=== PATIENT | female | born 1980 ===

== ENCOUNTER 2016-12-26 12:09 | Emergency (ER) | payer SELFPAY ==
[2016-12-26 12:25] VITALS: BP 120/81; PULSE 75; RESP 16; TEMP 98; O2SAT 100
[2016-12-26] MEDS ORDERED: Sodium Chloride 0.9% 1,000 ML IV STA (13:03)
--- NOTE | 2016-12-26 13:15 | ED PDOC ---
HPI: Chest Pain Time Seen by Provider: 12/26/16 12:55 Chief Complaint (Nursing): Chest Pain Chief Complaint (Provider): Chest Pain History Per: Patient History/Exam Limitations: no limitations Onset/Duration Of Symptoms: Days Current Symptoms Are (Timing): Still Present Severity: Mild Quality: "Pain" Associated Symptoms: denies: Nausea, Dyspnea, Diaphoresis Modifying Factors: None Exacerbating Factors: None Alleviating Factors: None Additional Complaint(s): Patient is a 36 year old female who presents to ED for evaluation of left sided chest/rib pain for 2 days. Pain is reportedly intermittent, lasting 1-2 minutes with spontaneous resolution. Denies SOB, palpations, nausea, vomiting, injury or headache. No numbness, tingles, weakness, long distance travel, cough. No hormone tx. Past Medical History Reviewed: Historical Data, Nursing Documentation, Vital Signs Vital Signs: Last Vital Signs Temp 98.0 F 12/26/16 12:23 Pulse 75 12/26/16 12:23 Resp 16 12/26/16 12:23 BP 120/81 12/26/16 12:23 Pulse Ox 100 12/26/16 13:27 - Medical History PMH: No Chronic Diseases - Surgical History Surgical History: No Surg Hx - Family History Family History: States: Unknown Family Hx - Social History Current smoker - smoking cessation education provided: No Alcohol: None Drugs: Denies - Home Medications Home Medications: Ambulatory Orders Medication Instructions Recorded Ibuprofen [Motrin] 600 mg PO TID 7 Days 12/26/16 - Allergies Allergies/Adverse Reactions: Allergies Allergy/AdvReac Type Severity Reaction Status Date / Time No Known Allergies Allergy Verified 12/26/16 12:22 Review of Systems ROS Statement: Except As Marked, All Systems Reviewed And Found Negative Constitutional: Negative for: Fever Cardiovascular: Positive for: Chest Pain. Negative for: Palpitations, Light Headedness Respiratory: Negative for: Cough, Shortness of Breath Gastrointestinal: Negative for: Nausea, Vomiting, Abdominal Pain Musculoskeletal: Negative for: Neck Pain, Back Pain Skin: Negative for: Rash, Bruising Neurological: Negative for: Weakness, Numbness Physical Exam - Reviewed Nursing Documentation Reviewed: Yes Vital Signs Reviewed: Yes - Physical Exam Appears: Positive for: Non-toxic, No Acute Distress Skin: Positive for: Normal Color, Warm Eye Exam: Positive for: Normal appearance Neck: Positive for: Normal, Painless ROM Cardiovascular/Chest: Positive for: Regular Rate, Rhythm. Negative for: Chest Non Tender (left lateral rib tenderness upper), Murmur Respiratory: Positive for: Normal Breath Sounds. Negative for: Respiratory Distress Gastrointestinal/Abdominal: Positive for: Normal Exam, Soft. Negative for: Tenderness Back: Positive for: Normal Inspection. Negative for: L CVA Tenderness, R CVA Tenderness Extremity: Positive for: Normal ROM. Negative for: Tenderness, Pedal Edema, Calf Tenderness Neurologic/Psych: Positive for: Alert, Oriented - Laboratory Results Result Diagrams: 12/26/16 14:00 12/26/16 14:00 Interpretation Of Abn Labs: no acute - ECG ECG: Positive for: Interpreted By Me, Viewed By Me ECG Rhythm: Positive for: Normal QRS, Normal ST Segment, Sinus Rhythm O2 Sat by Pulse Oximetry: 100 (RA) Pulse Ox Interpretation: Normal - Radiology X-Ray: Interpreted by Me, Viewed By Me X-Ray Interpretation: No Acute Disease - Progress ED Course And Treament: Pt. stable. AAOx3. Pain free. Medical Decision Making Medical Decision Making: Time: 1255 Initial impression: Rib pain r/o fracture Initial plan: -- EKG -- CMP -- Troponin -- Urine preg -- CBC -- CXR -- NSF and Toradol Scribe Attestation: Documented by Marleen Calhoun acting as a scribe for Kevin Norris MD MD Scribe Attestation: All medical record entries made by the Scribe were at my direction and personally dictated by me. I have reviewed the chart and agree that the record accurately reflects my personal performance of the history, physical exam, medical decision making, and the department course for this patient. I have also personally directed, reviewed, and agree with the discharge instructions and disposition. Disposition - Clinical Impression Clinical Impression: Chest pain - Patient ED Disposition Is Patient to be Admitted: No Counseled Patient/Family Regarding: Studies Performed, Diagnosis, Need For Followup, Rx Given - Disposition Referrals: [facility] [Outside] - 12/28/16 Disposition: Routine/Home Disposition Time: 15:08 Condition: STABLE Additional Instructions: Return if not better in 3 days. Prescriptions: Ibuprofen [Motrin] 600 mg PO TID 7 Days Instructions: Chest Wall Pain (ED)
[2016-12-26 14:25] LABS: BASO % 0.7 % (0.0-2.0); EOS % 0.4 % (0.0-4.0); HEMATOCRIT 37.9 % (34.0-47.0); LYMPH # 1.1 K/uL (1.0-4.3); LYMPH % 15.4 % (20.0-40.0); MEAN CELL VOLUME 85.7 fl (81.0-99.0); MEAN CORPUSCULAR HEMOGLOBIN 28.2 pg (27.0-31.0); MEAN CORPUSCULAR HGB CONC 32.9 g/dL (33.0-37.0); MEAN PLATELET VOLUME 9.3 fl (7.2-11.7); MONO # 0.5 K/uL (0.0-0.8); MONO % 6.2 % (0.0-10.0); NEUT # 5.8 K/uL (1.8-7.0); NEUT % 77.3 % (50.0-75.0); RED CELL DISTRIBUTION WIDTH 21.1 % (11.5-14.5); WHITE BLOOD COUNT 7.5 K/uL (4.8-10.8)
[2016-12-26 14:32] LABS: ALB/GLOB RATIO 1.3 (1.0-2.1); ALKALINE PHOSPHATASE 53 U/L (38-126); ALT/SGPT 44 U/L (9-52); AST/SGOT 38 U/L (14-36); BILIRUBIN,TOTAL 0.4 mg/dl (0.2-1.3); BLOOD UREA NITROGEN 11 mg/dl (7-17); CALCIUM 9.7 mg/dL (8.4-10.2); CARBON DIOXIDE 24 mmol/L (22-30); CHLORIDE 105 mmol/L (98-107); GFR AFRICAN-AMERICAN > 60; GLUCOSE,RANDOM 95 mg/dL (65-105); POTASSIUM 3.7 MMOL/L (3.6-5.0); SODIUM 142 mmol/l (132-148); TOTAL PROTEIN 8.9 G/DL (6.3-8.2)
--- NOTE | 2016-12-26 16:38 | RAD ---
HISTORY: pain left lateral chest COMPARISON: No prior. TECHNIQUE: Chest PA and lateral FINDINGS: LUNGS: No active pulmonary disease. PLEURA: No significant pleural effusion identified. No pneumothorax apparent. CARDIOVASCULAR: Normal. OSSEOUS STRUCTURES: No significant abnormalities. VISUALIZED UPPER ABDOMEN: Normal. OTHER FINDINGS: None. IMPRESSION: No active disease.
--- NOTE | 2016-12-27 08:40 | CARD ---
APPROVED REPORT EKG Measurement Heart [id number] <Conclusion> Normal sinus rhythm with sinus arrhythmia Normal ECG
== END 2016-12-26 15:35 | disposition home or self-care (01) ==
LOC: H.ER 12:09
DX: R07.9 Chest pain, unspecified (principal); R07.81 Pleurodynia

== ENCOUNTER 2018-10-03 10:29 | Emergency (ER) | payer OTHER, SELFPAY ==
[2018-10-03 11:09] VITALS: BP 115/79; PULSE 75; RESP 18; TEMP 98.4; O2SAT 99
[2018-10-03] MEDS ORDERED: Naproxen 500 MG TAB PO ONE (21:27)
== END 2018-10-03 13:20 | disposition left against medical advice (07) ==
LOC: H.ER 10:29
DX: Z02.89 Encounter for other administrative examinations (principal)

== ENCOUNTER 2018-10-03 20:46 | Emergency (ER) | payer OTHER ==
[2018-10-03] MEDS ORDERED: Naproxen 500 MG TAB PO ONE (21:16)
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
[2018-10-03 23:39] VITALS: BP 108/68; PULSE 79; RESP 17; TEMP 98; O2SAT 100
--- NOTE | 2018-10-04 08:04 | RAD ---
Date of service: 10/03/2018 PROCEDURE: Cervical Spine Radiographs. HISTORY: Pain. COMPARISON: None available. FINDINGS: BONES: Alignment maintained. No fracture. Dens Intact. DISC SPACES: Normal. SOFT TISSUES: Normal. No prevertebral soft tissue swelling. OTHER FINDINGS: None. IMPRESSION: Normal cervical spine radiographs
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
== END 2018-10-03 23:25 | disposition home or self-care (01) ==
LOC: H.ER 20:46
DX: S13.4XXA Sprain of ligaments of cervical spine, initial encounter (principal); M54.5 Low back pain; V89.2XXA Person injured in unspecified motor-vehicle accident, traffic, initial encounter